=== PATIENT | female | born 1990 | race Two or more races ===

== ENCOUNTER 2025-04-24 11:42 | Emergency (ER) | payer OTHER ==
[~2025-04-24] VITALS: Ht 160 cm; Wt 81.6 kg
[2025-04-24] MEDS ORDERED: FAMOTIDINE/PF 20 MG/2 ML VIAL IV ONE (12:15)
[2025-04-24] MEDS ORDERED: PROMETHAZINE HCL 50 MG/ML AMPUL IM ONE ×2 (12:15→12:39)
[2025-04-24] MEDS ORDERED: 0.9 % SODIUM CHLORIDE 1,000 ML IV ONE (12:30)
[2025-04-24] MEDS ORDERED: MORPHINE SULFATE 4 MG/ML VIAL IV PRN (12:30)
[2025-04-24 12:32] VITALS: BP 110/70; O2SAT 99
[2025-04-24] MEDS ORDERED: FAMOTIDINE/PF 20 MG/2 ML VIAL ONE (12:40)
[2025-04-24 13:20] LABS: BASO % 0.3 % (0.1-1.2); EOS # 0.01 (0.04-0.54); EOS % 0.2 % (0.7-7.0); LYMPH # 2.08 (1.18-3.74); LYMPH % 33.1 % (19.3-53.1); MEAN PLATELET VOLUME 11.70 fl (9.4-12.4); MONO # 0.46 (0.24-0.82); MONO % 7.3 % (4.7-12.5); NEUT # 3.70 (1.56-6.13); NEUT % 58.9 % (34.0-71.1); RED CELL DISTRIBUTION WIDTH 13.3 % (11.6-14.4)
[2025-04-24 13:51] LABS: INR 1.71
[2025-04-24 14:18] LABS: ALT/SGPT 25 U/L (12-78); AST/SGOT 42 U/L (15-37); BILIRUBIN TOTAL 0.67 mg/dL (0.3-1.2); BILIRUBIN,CONJUGATED 0.26 mg/dL (0.0-0.2); BUN CREA RATIO 27 (7.0-25.0); CREATININE SERUM 0.55 mg/dL (0.55-1.02); GFR 128.09; GLOBULINA 3.8 G/DL (2.4-3.5); GLUCOSE FASTING 94 mg/dL (65-100); OSMOLALITY SERUM 284 MOSM/KG (275-295)
[2025-04-24 14:19] LABS: HCG QUANTITATIVE < 1 mUI/mL (1-3)
[2025-04-24] MEDS ORDERED: LEVSIN/SL0.125 MG SL (14:35)
[2025-04-24] MEDS ORDERED: PROTONIX40 MG PO (14:35)
[2025-04-24] MEDS ORDERED: ZOFRAN8 MG PO (14:35)
[2025-04-24 14:52] LABS: URINE APPEARANCE Turbid; URINE BILIRRUBIN Moderate (NEGATIVE); URINE BLOOD Moderate; URINE COLOR Red; URINE GLUCOSE Negative (NEGATIVE); URINE LEUKOCYTE Moderate; URINE NITRATE Positive; URINE UROBILINOGEN 1.0 E.U./dl
[2025-04-24 14:53] LABS: URINE BACTERIA 946.0 uL (0.0-1933); URINE EPITHELIAL CELLS 21.3 uL (0.0-38.8)
[2025-04-24 15:06] LABS: URINE CAST 0.52 uL (0.0-1.40); URINE KETONE 80 (NEGATIVE); URINE PROTEIN 100 (NEGATIVE)
[2025-04-24 15:14] LABS: URINE MUCUS MODERATE; URINE WBC 479.5 uL (0.0-23.2)
[2025-04-24 15:15] LABS: URINE RBC > 10558.9 uL (0.0-20.8)
[2025-04-24 15:16] LABS: TYPE CELLS SQUAMOUS; URINE CRYSTALS FEW /HPF
== END 2025-04-24 14:50 | disposition home or self-care (01) ==
LOC: ER 11:42
PROVIDERS: General Practice
DX: K82.8 Other specified diseases of gallbladder (principal); R10.13 Epigastric pain; Z98.84 Bariatric surgery status